=== PATIENT | female | born 1960 | race Caucasian/White ===

== ENCOUNTER → 2016-07-23 | Outpatient (CLI) | payer MEDICARE ==
[~2016-07-23] MED LIST: ALBU90AE IH; ALPR0.25 PO; ATOR40TA70 PO; BARIUM SUSPENSION 2.1% (VANILLA SILQ) 450 ML PO ONE; BUDE10.2 IH; BUPR100T15 PO; BUTA1CAP40 PO; CETI10TA17 PO; CLOP75TA28 PO; IBUP-1780 PO; IOHEXOL 350 MG/ML 100 ML (OMNIPAQUE 350) VIAL IV ONE; IPRA3AMP IH; LUBI8CAP PO; METO-333 PO; NS 100 ML (IVPB) BAG IV ONE; OXYC-202 PO; OXYC-465 PO; PANT40TA3 PO; PREG100C PO; RT-ALBUINH IH; TRAM-42 PO; VARE1TAB21 PO
--- OUTSIDE RECORDS SUMMARY | 2016-07-23 09:28 | XMS REPORT | Continuity of Care Document ---
Author Author [facility] Organization [facility] Address Unknown Phone Unavailable Allergies Medications Problems Procedures Results Encounters ACCT No. Visit Date/Time Discharge Status Pt. Type Provider Facility Loc./Unit Complaint [id number] 05/19/2013 09:13:00 05/19/2013 23 :59:59 CLS Outpatient
--- NOTE | 2016-07-23 13:27 | Diagnostic Imaging Report ---
PROCEDURE: CT chest with contrast only. TECHNIQUE: Multiple contiguous axial images were obtained through the chest after administration of intravenous contrast. INDICATION: Lung cancer. Chest pain. 100 mL of Omnipaque 350 is administered intravenously. There is a comparison study from 01/20/2013 reviewed. FINDINGS: There are background prominent emphysema changes. There is an irregular nodule with speculation seen measuring 2.5 x 1.7 x 2.5 cm in the right lung apex with associated pleural parenchymal thickening in the right apex. This is new from 2013 exam. There is no more recent exam for comparison in our institution. The heart size is normal. There is no pericardial or pleural effusion. There are calcified lymph nodes in the infracarinal region compatible with old granulomatous process. Also calcified nodes in the subaortic location and in the left lung base seen. No significantly enlarged noncalcified lymph nodes seen in the lala, the mediastinum or in the axilla. Sections of the upper abdomen demonstrate a left adrenal nodule measuring 1.6 x 1.2 cm of indeterminate etiology. There is some thickening in the left adrenal gland on 2013 exam and this is possibly a chronic benign adrenal nodule. The previous study, however, does not evaluate this region adequately and comparison is not accurate. PET scan evaluation can be helpful. The osseous structures demonstrate degenerative changes and mild right convexity scoliosis in the upper thoracic spine. IMPRESSION: 1. Right upper lobe irregular nodule measuring 2.5 cm. This could be a neoplasm. 2. Emphysema. 3. Indeterminate 1.6 cm left adrenal nodule. Dictated by: Dictated on workstation # [id number]
== END ==
LOC: RAD 09:25
PROVIDERS: ATTEND Internal Medicine Critical Care Medicine
DX: J84.9 Interstitial pulmonary disease, unspecified (principal); C34.90 Malignant neoplasm of unspecified part of unspecified bronchus or lung; F41.9 Anxiety disorder, unspecified; Z72.0 Tobacco use
CPT/HCPCS: 71260; 74170

== ENCOUNTER → 2016-07-23 | Outpatient (CLI) | payer MEDICARE ==
[~2016-07-23] MED LIST changes: -BARIUM SUSPENSION 2.1% (VANILLA SILQ) 450 ML PO ONE; -IOHEXOL 350 MG/ML 100 ML (OMNIPAQUE 350) VIAL IV ONE; -NS 100 ML (IVPB) BAG IV ONE
--- OUTSIDE RECORDS SUMMARY | 2016-07-23 09:34 | XMS REPORT | Continuity of Care Document ---
Author Author [facility] Organization [facility] Address Unknown Phone Unavailable Allergies Medications Problems Procedures Results Encounters ACCT No. Visit Date/Time Discharge Status Pt. Type Provider Facility Loc./Unit Complaint [id number] 05/19/2013 09:13:00 05/19/2013 23 :59:59 CLS Outpatient
--- NOTE | 2016-07-23 12:26 | Diagnostic Imaging Report ---
PROCEDURE: CT abdomen with and without contrast. TECHNIQUE: Multiple contiguous axial CT images of the abdomen were obtained prior to and after intravenous administration of iodinated contrast. INDICATION: History of lung cancer, asthma, and COPD. Anterior chest pain. COMPARISON: CT chest from same day and prior CT chest dated 07/23/2016 FINDINGS: Included views of the lung bases show areas of air trapping consistent with background of COPD. Calcified granulomas noted within the lateral left lung base. There is some fullness of the bilateral adrenal glands. A 1.2 x 1.1 cm more focal nodular area is seen on the left. Noncontrast Hounsfield units are consistent with benign adenoma. The kidneys, pancreas, and spleen have a normal appearance. There is a small cyst within the dome of segment 2 of the liver. Similar-appearing ovoid hypoenhancing focus is also noted within medial margins of segment 3 of the liver. This may represent a cyst as well, but is too small to adequately characterize based on this exam. No distinct solid hepatic mass type lesions are identified. Included small bowel loops are nondistended. There is no loculated fluid collection, free fluid or free air within the abdomen. No abnormal mesenteric or retroperitoneal adenopathy is seen. There is diffuse calcified aortic atherosclerosis. Bony structures show age-related degenerative changes. No lytic or blastic bony lesions are seen. IMPRESSION: 1. Fullness of the bilateral adrenal glands with more nodular area on the left. Again, noncontrast Hounsfield units are consistent with benign adenoma. 2. Benign-appearing cyst within the dome of segment 2 of the liver and similar appearing subcentimeter lesion within the medial inferior margins of segment 3 of the liver. This too may represent a cyst, but is too small to adequately characterized based on this exam. 3. Significant diffuse calcified aortic and arterial atherosclerosis. Correlation for risk factors is recommended. 4. Changes of COPD within the included lung bases. Dictated by: Dictated on workstation # [id number]
== END ==
LOC: RAD 09:31
PROVIDERS: ATTEND Internal Medicine Hematology & Oncology
DX: E27.9 Disorder of adrenal gland, unspecified (principal); K76.89 Other specified diseases of liver; I70.0 Atherosclerosis of aorta; J44.9 Chronic obstructive pulmonary disease, unspecified; C34.90 Malignant neoplasm of unspecified part of unspecified bronchus or lung
CPT/HCPCS: 74170

== ENCOUNTER → 2016-08-06 | Outpatient (CLI) | payer MEDICARE ==
--- NOTE | 2016-08-06 18:04 | Diagnostic Imaging Report ---
EXAMINATION: PET-CT TECHNIQUE: Serum glucose level at the time of the study is: 84 mg/dL. 12.6 mCi of FDG was administered intravenously followed by obtaining PET images with corresponding noncontrast CT scan images. The CT scan was performed for anatomic correlation and attenuation correction and was not performed according to the diagnostic protocol of the areas covered. The scan was performed from the head to mid thighs. INDICATION: Non-small cell lung cancer, recurrence detection. FINDINGS: There is symmetric FDG uptake in the brain. There are nonfocal areas of mild increased uptake in the neck seen. These are most likely physiologic. There is mild hypermetabolism seen in the right lung apex posteriorly. This is most prominent along the posterior medial aspect of the right lung apex posterior to the area of the dense consolidation in the central portion of the apex. The patient reportedly had chemotherapy and radiation more than 12 months prior to this scan. Radiation pneumonitis is a possibility although generally expected to be less hypermetabolic after a year. No other hypermetabolic lesion is identified. No significant hypermetabolic lesion is seen in the abdomen or pelvis. Expected excretion in the urinary tract is seen. IMPRESSION: Mild hypermetabolism seen most prominently along the posterior aspect of the right lung apex is concerning for tumor recurrence. Radiation pneumonitis is in the differential although less likely since radiation was done one year ago. If needed, a CT-guided biopsy could be performed, or followup exams. Dictated by: Dictated on workstation # [id number]
== END ==
LOC: RAD 10:17
PROVIDERS: ATTEND Internal Medicine Hematology & Oncology
DX: C34.11 Malignant neoplasm of upper lobe, right bronchus or lung (principal); J84.9 Interstitial pulmonary disease, unspecified; M54.9 Dorsalgia, unspecified

== ENCOUNTER → 2016-08-16 | Outpatient (CLI) | payer MEDICARE ==
[~2016-08-16] MED LIST changes: +GADOBUTROL 7.5 MMOL/7.5 ML (GADAVIST) VIAL IV ONE
--- NOTE | 2016-08-16 12:02 | Diagnostic Imaging Report ---
PROCEDURE: MR imaging of the brain with and without contrast. TECHNIQUE: Multiplanar, multisequence MR imaging of the brain was performed with and without contrast. INDICATION: Frequent headaches. Lung cancer. 5 ML of Gadavist is administered intravenously. FINDINGS: There is no diffusion restriction to suggest an acute infarct or other diffusion abnormality. The brain parenchyma demonstrate normal rivera and white matter differentiation. There is no enhancing mass to suggest metastatic disease. There is an 8mm aneurysm suspected along the left anterior cerebral artery. The internal auditory canals and inner ear structures appear unremarkable. The brainstem and cerebellum appear unremarkable. The pituitary gland is normal in size. No hypothalamic or pineal region mass. IMPRESSION: 1. No acute infarct or enhancing mass. No evidence of metastasis. 2. 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 Further evaluation with CTA or MRA of the brain is recommended. Report was faxed to office Of Dr. Cooper by sue at 12:02 p.m. Dictated by: Dictated on workstation # [id number]
== END ==
LOC: RAD 09:36
PROVIDERS: ATTEND Internal Medicine Hematology & Oncology
DX: R51 Headache (principal)
CPT/HCPCS: 70553

== ENCOUNTER 2016-08-22 09:38 | Day surgery (SDC) | payer MEDICARE ==
[~2016-08-22] VITALS: Ht 154.9 cm; Wt 49.4 kg
[2016-08-22] VITALS (15 sets, daily range): BP systolic 107–191; BP diastolic 67–92
[2016-08-22 10:06] LABS: MEAN PLATELET VOLUME 10.7 FL (7.4-10.4); RED BLOOD COUNT 5.11 10^6/uL (4.35-5.85); RED CELL DISTRIBUTION WIDTH 13.9 % (10.0-14.5); WHITE BLOOD COUNT 9.3 10^3/uL (4.3-11.0)
[2016-08-22 10:14] LABS: INR 0.9 (0.8-1.4); PROTHROMBIN TIME PATIENT 11.8 SEC (12.2-14.7)
[2016-08-22] MEDS ORDERED: fentaNYL INJECTION 100 MCG/2 ML AMP IVP ONE (10:15)
[2016-08-22] MEDS ORDERED: LIDOCAINE 1% INJ 20 ML (XYLOCAINE) VIAL INJ ONE (10:15)
[2016-08-22] MEDS ORDERED: IBUP-1780 PO (11:16)
[2016-08-22] MEDS ORDERED: PANT40TA3 PO (11:16)
[2016-08-22] MEDS ORDERED: CETI10TA17 PO (11:16)
[2016-08-22] MEDS ORDERED: ALBU90AE IH (11:16)
[2016-08-22] MEDS ORDERED: ATOR40TA70 PO (11:16)
[2016-08-22] MEDS ORDERED: RT-ALBUINH IH (11:16)
[2016-08-22] MEDS ORDERED: ALPR0.25 PO (11:16)
[2016-08-22] MEDS ORDERED: BUDE10.2 IH (11:16)
[2016-08-22] MEDS ORDERED: LUBI8CAP PO (11:16)
[2016-08-22] MEDS ORDERED: OXYC-202 PO (11:16)
[2016-08-22] MEDS ORDERED: CLOP75TA28 PO (11:16)
[2016-08-22] MEDS ORDERED: BUTA1CAP40 PO (11:16)
[2016-08-22] MEDS ORDERED: PREG100C PO (11:16)
[2016-08-22] MEDS ORDERED: IPRA3AMP IH (11:16)
[2016-08-22] MEDS ORDERED: METO-333 PO (11:16)
[2016-08-22] MEDS ORDERED: BUPR100T15 PO (11:16)
[2016-08-22] MEDS ORDERED: OXYC-465 PO (11:16)
[2016-08-22] MEDS ORDERED: VARE1TAB21 PO (11:30)
--- NOTE | 2016-08-22 12:24 | Pre-Procedure Progress Note ---
Pre-Procedure Progress Note H&P Reviewed The H&P was reviewed, patient examined and no changes noted. Date H&P Reviewed: Aug 22, 2016 Time H&P Reviewed: 11:30 Pre-Procedure Diagnosis: lung mass ALANIS JERONIMO MD Aug 22, 2016 12:24
[2016-08-22] MEDS ORDERED: HYDROcodone/APAP 5 MG/325 MG (LORTAB) TAB PO PRN (12:30)
--- NOTE | 2016-08-22 13:41 | Diagnostic Imaging Report ---
EXAMINATION: CT-guided biopsy-lung. INDICATION: Right lung apex mass. Current history and physical and other medical records are reviewed prior to the procedure. CONSENT: Informed consent was obtained from the patient. The risks, benefits, potential complications and alternatives were reviewed and all questions answered to the patient's satisfaction. The patient's vital signs, cardiac rhythm, and pulse oximetry were observed throughout the procedure by qualified nursing personnel. Sedation/medications: none. FINDINGS: Right lung apex the mass with hypermetabolism seen posteriorly on PET. PROCEDURE: After maximal sterile barrier technique preparation and draping, 1% lidocaine was utilized for local anesthesia. With the patient in right side down position, and via posterior intercostal approach, a 17-gauge guide needle is introduced into the right upper lobe apical mass directed into the hypermetabolic region seen on recent PET under CT scan guidance. After confirming adequate positioning with saved CT images, multiple 18 gauge core biopsy specimens were obtained. 3 cc of autologous blood patch is injected in the tract as the guide needle was removed The patient tolerated the procedure well with no immediate complications. IMPRESSION: Successful CT-guided biopsy of right lung apex mass. Dictated by: Dictated on workstation # [id number]
--- NOTE | 2016-08-22 20:19 | Diagnostic Imaging Report ---
EXAMINATION: Portable upright radiograph of the chest. INDICATION: Post lung biopsy. FINDINGS: There is a left lung apex mass with prominent associated opacity likely related to postbiopsy changes. There is no pneumothorax. There is diffuse interstitial thickening in the lungs. The heart size is normal. No pleural effusion. The mediastinum and lala appear unremarkable. IMPRESSION: Left lung apex mass. No pneumothorax. Dictated by: Dictated on workstation # [id number]
== END 2016-08-22 16:40 | disposition home or self-care (01) ==
LOC: RAD 09:38 → SURG 13:07 → RAD 16:40
PROVIDERS: ATTEND Internal Medicine Hematology & Oncology
DX: J84.10 Pulmonary fibrosis, unspecified (principal)
CPT/HCPCS: 36415; 71035; 77012; 85027; 85610; 85730; 88305; 88342; 88344

== ENCOUNTER → 2016-08-27 | Outpatient (CLI) | payer MEDICARE ==
[~2016-08-27] MED LIST changes: -GADOBUTROL 7.5 MMOL/7.5 ML (GADAVIST) VIAL IV ONE
--- NOTE | 2016-08-27 13:30 | Diagnostic Imaging Report ---
PROCEDURE: MR angiography of the brain without the use of contrast. TECHNIQUE: 3D [id number] non contrast enhanced MR angiography of the head was performed. Source data was reformatted into rotating MIP projections. INDICATION: Possible aneurysm based on prominent flow-void signal on the MRI of the brain performed on 08/16/2016. FINDINGS: There is an aneurysm measuring 9 x 7 x 6 mm arising from the anterior communicating artery and projecting inferiorly between the medial aspect of the frontal lobes posteriorly and inferiorly from the suprasellar cistern. The anterior cerebral arteries, middle cerebral arteries, and internal carotid arteries are patent with no significant stenosis or occlusion seen. There is codominance of the vertebral arteries, perhaps the left vertebral artery is minimally larger. There are patent bilateral posterior cerebral arteries and basilar artery. The visualized portions of the venous sinuses appear patent. 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 No significant central intracranial vessel occlusion or high-grade stenosis is seen. The report was faxed to the office of Dr. Liberty Cooper by JACOB at 1:30 PM. Dictated by: Dictated on workstation # [id number]
== END ==
LOC: RAD 10:03
PROVIDERS: ATTEND Internal Medicine Hematology & Oncology
DX: I67.1 Cerebral aneurysm, nonruptured (principal); R51 Headache
CPT/HCPCS: 70544

== ENCOUNTER 2016-09-01 17:53 | Emergency (ER) | payer MEDICARE ==
[~2016-09-01] VITALS: Ht 154.9 cm; Wt 49.4 kg
[~2016-09-01 17:53] MED LIST changes: -TRAM-42 PO
[2016-09-01] MEDS ORDERED: fentaNYL INJECTION 100 MCG/2 ML AMP IM ONE (18:30)
[2016-09-01] MEDS ORDERED: ONDANSETRON 4 MG (ZOFRAN) ORAL DISSOLVE TAB PO ONE (18:30)
--- NOTE | 2016-09-01 18:36 | ED Headache ---
General Chief Complaint: Head/Cervical Problems Stated Complaint: POST OP/R SIDE PAIN/HEADACHE Nursing Triage Note: to ER with complaints of headache and right axillary tenderness s/p lung biopsy approximately 1 week ago. Nursing Sepsis Screen: No Definite Risk Source: patient Exam Limitations: no limitations History of Present Illness Time seen by provider: 18:33 Initial Comments Patient has 2 acute problems today. Personal she has a bad headache. It is described as a global throbbing associated with nausea and photophobia. Pain has been constant for 5 days. She is taking Percocet without relief. She recently had an MRA which showed a 9 mm aneurysm of the t[place] of [place]. She also has right axillary pain where she had a CT-guided biopsy of the right upper lung mass last week. She denies fevers. She has a nonproductive cough. She is not short of air. Pain is worse with pressure on the side or moving the arm. Allergies and Home Medications Allergies Coded Allergies: No Known Drug Allergies (Unverified , 08/22/16) Home Medications Albuterol Sulfate 90 Mcg Aer.pow.ba, 2 PUFF IH Q4H, (Reported) Albuterol Sulfate 1 Puff Puff, 2 PUFF IH Q4H, (Reported) 1 PUFF = 90 MCG Alprazolam 0.25 Mg Tablet, 1 TAB PO HS, (Reported) Atorvastatin Calcium 40 Mg Tablet, 1 TAB PO DAILY, (Reported) Budesonide/Formoterol Fumarate 10.2 Gm Hfa.aer.ad, 2 PUFF IH BID, (Reported) Bupropion HCl 100 Mg Tablet, 1 TAB PO BID, (Reported) Butalbit/Acetamin/Caff/Codeine 1 Each Capsule, 1 CAP PO Q4H PRN for HEADACHE, ( Reported) Cetirizine HCl 10 Mg Tablet, 1 TAB PO DAILY, (Reported) Clopidogrel Bisulfate 75 Mg Tablet, 1 TAB PO DAILY, (Reported) Ibuprofen 800 Mg Tablet, 1 TAB PO Q8H PRN for PAIN, (Reported) Ipratropium/Albuterol Sulfate 3 Ml Ampul.neb, 3 ML IH Q4H PRN for SHORTNESS OF BREATH, (Reported) Lubiprostone 8 Mcg Capsule, 1 CAP PO BID, (Reported) Metoprolol Tartrate 25 Mg Tablet, 25 MG PO DAILY, (Reported) Oxycodone HCl/Acetaminophen 1 Each Tablet, 1-2 TAB PO Q6H PRN for PAIN, ( Reported) Pantoprazole Sodium 40 Mg Tablet.dr, 1 TAB PO DAILY, (Reported) Pregabalin 100 Mg Capsule, 1 CAP PO BID, (Reported) Varenicline Tartrate 1 Each Tab.ds.pk, 1 EACH PO DAILY, (Reported) Constitutional: no symptoms reported Eyes: Photophobia Ears, Nose, Mouth, Throat: no symptoms reported Respiratory: cough Cardiovascular: no symptoms reported Gastrointestinal: No abdominal pain Genitourinary: no symptoms reported Skin: no symptoms reported Psychiatric/Neurological: Headache All Other Systems Reviewed Negative Unless Noted: Yes Past Yjeqioh-Sjtnjy-Ramfcw Hx Patient Social History Alcohol Use: Denies Use Recreational Drug Use: Yes Drug of Choice: MARIJUANA 3-5 TIMES PER WEEK TO HELP W/ PAIN & APPETITE Smoking Status: Current Everyday Smoker Type Used: Cigarettes 2nd Hand Smoke Exposure: Yes Recent Foreign Travel: No Contact w/Someone Who Travel: No Recent Infectious Disease Expo: No Recent Hopitalizations: No Immunizations Up To Date Tetanus Booster (TDap): Unknown Seasonal Allergies Seasonal Allergies: Yes Surgeries HX Surgeries: Yes (lung biopsy) Surgeries: Cardiac, Hysterectomy Respiratory Hx Respiratory Disorders: Yes Respiratory Disorders: Asthma, COPD Cardiovascular Hx Cardiac Disorders: Yes (HX [place]) Cardiac Disorders: Aneurysm, Coronary Artery Disease, Heart Attack, High Cholesterol, Hypertension Neurological Hx Neurological Disorders: Yes Neurological Disorders: Headaches /Migraines Reproductive System Hx Reproductive Disorders: No 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 Genitourinary Hx Genitourinary Disorders: No Gastrointestinal Hx Gastrointestinal Disorders: Yes Gastrointestinal Disorders: Gastroesophageal Reflux Musculoskeletal Hx Musculoskeletal Disorders: Yes Musculoskeletal Disorders: Fibromyalgia, Chronic Back Pain Endocrine Hx Endocrine Disorders: No HEENT HX ENT Disorders: Yes (GLASSES) Loss of Vision: Bilateral Hearing Impairment: Denies Cancer Hx Cancer: 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) Cancer: Lung Psychosocial Hx Psychiatric Problems: Yes Behavioral Health Disorders: Anxiety, Depression Integumentary HX Skin/Integumentary Disorder: No Blood Transfusions Hx Blood Disorders: No Reviewed Nursing Assessment Reviewed/Agree w Nursing PMH: Yes Physical Exam Vital Signs Vital Sign - Last 12Hours 09/01/16 18:15 Temp 98.2 Pulse 95 Resp 18 B/P (MAP) 138/84 Pulse Ox 95 O2 Delivery Room Air Capillary Refill : Less Than 3 Seconds General Appearance: WD/WN, no apparent distress Neck: supple Cardiovascular: regular rate, rhythm Respiratory: lungs clear, normal breath sounds Gastrointestinal: non tender, soft Extremities: normal inspection, other (patient has tenderness in the posterior right axilla. There is no fluctuance or mass. No discoloration.) Psychiatric: alert, oriented x 3 Crainal Nerves: normal hearing, normal speech, PERRL Coordination/Gait: normal finger to nose, normal gait Motor/Sensory: no motor deficit, no sensory deficit Skin: normal color, warm/dry Progress/Results/Core Measures Results/Orders My Orders Orders - GALILEO MERCADO MD Chest Pa/Lat (2 View) (09/01/16 18:30) Ct Head Wo (09/01/16 18:30) Fentanyl Injection (Sublimaze Injection (09/01/16 18:30) Ondansetron Oral Dissolve Tab (Zofran (09/01/16 18:30) Medications Given in ED Current Medications Medications Dose Ordered Sig/Ivett Route Start Time Stop Time Status Last Admin Dose Admin Fentanyl Citrate 100 mcg ONCE ONCE IM 09/01/16 18:30 09/01/16 18:33 DC 09/01/16 18:37 100 MCG Ondansetron HCl 4 mg ONCE ONCE PO 09/01/16 18:30 09/01/16 18:33 DC 09/01/16 18:37 4 MG Vital Signs/I&O Vital Sign - Last 12Hours 09/01/16 09/01/16 18:15 18:37 Temp 98.2 98.2 Pulse 95 Resp 18 B/P (MAP) 138/84 Pulse Ox 95 O2 Delivery Room Air Blood Pressure Mean: 102 Progress Note : Time: 19:06 Progress Note Feels better After medication. Radiology results discussed patient. She has a appointment with neurosurgery this . Diagnostic Imaging Comments ate of Exam:09/01/16 CT HEAD WO PROCEDURE: CT head without contrast. TECHNIQUE: Multiple contiguous axial images were obtained through the brain without the use of intravenous contrast. DATE: September 01, 2016. COMPARISON: August 16, 2016 MRI brain. MR angiography of the head August 27, 2016. INDICATION: 56-year-old female, headache. History of lung cancer. FINDINGS: Noncontrast CT head exam is not sensitive for detection of brain metastasis. MRI brain with and without contrast would be the preferred imaging modality for assessment of brain metastasis. The ventricles and cerebral spinal fluid spaces are of normal size and configuration for the patient's age. There is no mass effect or midline shift. There is no acute intracranial hemorrhage. There is no abnormal extra-axial fluid collection. The visualized portions of the paranasal sinuses, mastoid air cells and middle ears are well aerated. IMPRESSION: 1. No identified acute intracranial abnormality. 2. Limited sensitivity for detection of brain metastasis. MRI brain with and without contrast would be the preferred imaging modality for such evaluation. 3. 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 Date of Exam:09/01/16 CHEST PA/LAT (2 VIEW) EXAMINATION: CHEST (PA AND LATERAL) CLINICAL INDICATION: 56-year-old female, cough, pain, shortness of breath. History of lung cancer. History of biopsy last week. COMPARISON: August 22, [address] chest July 23, 2016. FINDINGS: Stable overall appearance of the cardiomediastinal silhouette. There is no identified pneumothorax. There is no pleural effusion. There is asymmetric opacification within the right lung apex likely correlating with the patient's provided history of malignancy. This is fairly similar in overall appearance to comparison radiograph. There is no identified interval focal airspace consolidation. IMPRESSION: 1. Redemonstrated asymmetric opacification in the right lung apex likely correlating with provided history of lung cancer. 2. No identified pneumothorax or interval acute cardiopulmonary abnormality. Departure Impression Impression: Primary Impression: acute cephalgia Additional Impression: Pain in right axilla Disposition: 01 HOME, SELF-CARE Condition: Stable Departure-Patient Inst. Decision time for Depature: 19:01 Referrals: RICH SAUL DO (PCP) Primary Care Physician ALBERTINA ROJAS (Family) Primary Care Physician Patient Instructions: Headache, Adult (DC) Scripts Tramadol HCl (Ultram) 50 Mg Tablet 1-2 TAB PO Q4H Y for PAIN-MODERATE for 14 Days, TAB Prov: GALILEO MERCADO MD 09/01/16 GALILEO MERCADO MD Sep 01, 2016 18:36
--- NOTE | 2016-09-01 18:53 | Diagnostic Imaging Report ---
PROCEDURE: CT head without contrast. TECHNIQUE: Multiple contiguous axial images were obtained through the brain without the use of intravenous contrast. DATE: September 01, 2016. COMPARISON: August 16, 2016 MRI brain. MR angiography of the head August 27, 2016. INDICATION: 56-year-old female, headache. History of lung cancer. FINDINGS: Noncontrast CT head exam is not sensitive for detection of brain metastasis. MRI brain with and without contrast would be the preferred imaging modality for assessment of brain metastasis. The ventricles and cerebral spinal fluid spaces are of normal size and configuration for the patient's age. There is no mass effect or midline shift. There is no acute intracranial hemorrhage. There is no abnormal extra-axial fluid collection. The visualized portions of the paranasal sinuses, mastoid air cells and middle ears are well aerated. IMPRESSION: 1. No identified acute intracranial abnormality. 2. Limited sensitivity for detection of brain metastasis. MRI brain with and without contrast would be the preferred imaging modality for such evaluation. 3. 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 Dictated by: Dictated on workstation # [id number]
--- NOTE | 2016-09-01 18:56 | Diagnostic Imaging Report ---
EXAMINATION: CHEST (PA AND LATERAL) CLINICAL INDICATION: 56-year-old female, cough, pain, shortness of breath. History of lung cancer. History of biopsy last week. COMPARISON: August 22, [address] chest July 23, 2016. FINDINGS: Stable overall appearance of the cardiomediastinal silhouette. There is no identified pneumothorax. There is no pleural effusion. There is asymmetric opacification within the right lung apex likely correlating with the patient's provided history of malignancy. This is fairly similar in overall appearance to comparison radiograph. There is no identified interval focal airspace consolidation. IMPRESSION: 1. Redemonstrated asymmetric opacification in the right lung apex likely correlating with provided history of lung cancer. 2. No identified pneumothorax or interval acute cardiopulmonary abnormality. Dictated by: Dictated on workstation # [id number]
[2016-09-01] MEDS ORDERED: TRAM-42 PO (19:08)
[2016-09-01 19:13] VITALS: BP 133/80
== END 2016-09-01 19:13 | disposition home or self-care (01) ==
LOC: EDUNIT# 17:53 → ER 17:56
DX: R51 Headache (principal); G89.18 Other acute postprocedural pain; R91.8 Other nonspecific abnormal finding of lung field; I67.1 Cerebral aneurysm, nonruptured; I10 Essential (primary) hypertension; J44.9 Chronic obstructive pulmonary disease, unspecified; F17.210 Nicotine dependence, cigarettes, uncomplicated; Z79.02 Long term (current) use of antithrombotics/antiplatelets; Z79.899 Other long term (current) drug therapy; Z85.118 Personal history of other malignant neoplasm of bronchus and lung
CPT/HCPCS: 70450; 71020; 96372; 99282

== ENCOUNTER → 2016-10-16 | Outpatient (RCR) | payer MEDICARE, OTHER ==
--- OUTSIDE RECORDS SUMMARY | 2016-07-18 09:48 | XMS REPORT | Continuity of Care Document ---
Author Author [facility] Organization [facility] Address Unknown Phone Unavailable Allergies Medications Problems Procedures Results Encounters ACCT No. Visit Date/Time Discharge Status Pt. Type Provider Facility Loc./Unit Complaint [id number] 05/19/2013 09:13:00 05/19/2013 23 :59:59 CLS Outpatient
[2016-07-18 10:31] LABS: BASOPHILS % (AUTO) 0 % (0-10); EOSINOPHILS # (AUTO) 0.1 10^3/uL (0.0-0.3); EOSINOPHILS % (AUTO) 2 % (0-10); LYMPHOCYTES # (AUTO) 1.7 X 10^3 (1.0-4.0); LYMPHOCYTES % (AUTO) 21 % (12-44); MEAN CORPUSCULAR HEMOGLOBIN 32 PG (25-34); MEAN CORPUSCULAR HGB CONC 34 G/DL (32-36); MEAN CORPUSCULAR VOLUME 94 FL (80-99); MEAN PLATELET VOLUME 10.4 FL (7.4-10.4); MONOCYTES # (AUTO) 0.5 X 10^3 (0.0-1.0); MONOCYTES % (AUTO) 6 % (0-12); NEUTROPHILS # (AUTO) 5.4 X 10^3 (1.8-7.8); NEUTROPHILS % (AUTO) 71 % (42-75); PLATELET COUNT 334 10^3/uL (130-400); RED BLOOD COUNT 4.94 10^6/uL (4.35-5.85); RED CELL DISTRIBUTION WIDTH 14.2 % (10.0-14.5); WHITE BLOOD COUNT 7.7 10^3/uL (4.3-11.0)
[2016-07-18 11:17] LABS: ALANINE AMINOTRANSFERASE 9 U/L (0-55); ALBUMIN 4.2 G/DL (3.2-4.5); ANION GAP 9 MMOL/L (5-14); ASPARTATE AMINO TRANSFERASE 14 U/L (5-34); BILIRUBIN,TOTAL 0.3 MG/DL (0.1-1.0); BLOOD UREA NITROGEN 8 MG/DL (7-18); BUN/CREATININE RATIO 12; CALCIUM 9.7 MG/DL (8.5-10.1); CARBON DIOXIDE 26 MMOL/L (21-32); CHLORIDE 105 MMOL/L (98-107); CREATININE SERUM 0.68 MG/DL (0.60-1.30); GFR ESTIMATED > 60; GLUCOSE 87 MG/DL (70-105); POTASSIUM 3.9 MMOL/L (3.6-5.0); SODIUM 140 MMOL/L (135-145); TOTAL PROTEIN 7.5 G/DL (6.4-8.2)
[~2016-10-16] MED LIST changes: +TRAM-42 PO
[2016-10-16 10:35] LABS: BASOPHILS % (AUTO) 0 % (0-10); EOSINOPHILS # (AUTO) 0.2 10^3/uL (0.0-0.3); EOSINOPHILS % (AUTO) 2 % (0-10); LYMPHOCYTES # (AUTO) 1.7 X 10^3 (1.0-4.0); LYMPHOCYTES % (AUTO) 18 % (12-44); MEAN CORPUSCULAR HEMOGLOBIN 32 PG (25-34); MEAN CORPUSCULAR HGB CONC 33 G/DL (32-36); MEAN CORPUSCULAR VOLUME 95 FL (80-99); MEAN PLATELET VOLUME 10.9 FL (7.4-10.4); MONOCYTES # (AUTO) 0.5 X 10^3 (0.0-1.0); MONOCYTES % (AUTO) 6 % (0-12); NEUTROPHILS % (AUTO) 75 % (42-75); PLATELET COUNT 322 10^3/uL (130-400); RED BLOOD COUNT 4.85 10^6/uL (4.35-5.85); RED CELL DISTRIBUTION WIDTH 14.4 % (10.0-14.5); WHITE BLOOD COUNT 9.4 10^3/uL (4.3-11.0)
[2016-10-16 10:55] LABS: ALANINE AMINOTRANSFERASE 10 U/L (0-55); ALBUMIN 4.4 G/DL (3.2-4.5); ANION GAP 9 MMOL/L (5-14); ASPARTATE AMINO TRANSFERASE 15 U/L (5-34); BILIRUBIN,TOTAL 0.2 MG/DL (0.1-1.0); BLOOD UREA NITROGEN 8 MG/DL (7-18); BUN/CREATININE RATIO 11; CALCIUM 9.7 MG/DL (8.5-10.1); CARBON DIOXIDE 27 MMOL/L (21-32); CHLORIDE 104 MMOL/L (98-107); GFR ESTIMATED > 60; GLUCOSE 88 MG/DL (70-105); POTASSIUM 4.1 MMOL/L (3.6-5.0); SODIUM 140 MMOL/L (135-145); TOTAL PROTEIN 7.9 G/DL (6.4-8.2)
== END | disposition home or self-care (01) ==
LOC: ONC 07-05 14:26
PROVIDERS: ATTEND Internal Medicine Hematology & Oncology
DX: C34.11 Malignant neoplasm of upper lobe, right bronchus or lung (principal); J44.9 Chronic obstructive pulmonary disease, unspecified; F17.210 Nicotine dependence, cigarettes, uncomplicated; M79.7 Fibromyalgia; F41.9 Anxiety disorder, unspecified; Z79.899 Other long term (current) drug therapy
CPT/HCPCS: 36415; 80053; 85025; 99213; 99214

== ENCOUNTER 2016-10-21 11:36 | Emergency (ER) | payer MEDICARE, MEDICAID ==
[~2016-10-21] VITALS: Ht 152.4 cm; Wt 48.1 kg
--- NOTE | 2016-10-21 12:50 | ED General ---
General Chief Complaint: General Problems/Pain Stated Complaint: LEG GOING NUMB AFTER AFTER ANGIOGRAM 2 WEEKS AGO Nursing Triage Note: Pt reports she had angiogram of brain done 2 weeks ago. Pt now c/o pain and swelling to R groin site and pain in R lower leg. Pt also c/o SOA that started upon arrival to ED. Pt states she typically wears o2 at all times and did not have her oxygen on the way to ED. Pt also c/o headache that she has had for approx 2 months. Pt is scheduled to have doppler on R lower extremity tomorrow and has CT scheduled. Pt has hx lung cancer w/ possible mets to brain. Nursing Sepsis Screen: No Definite Risk Source of Information: Patient Exam Limitations: No Limitations History of Present Illness Time Seen by Provider: 12:01 Initial Comments This 56-year-old woman presents to the emergency room with complaints of pain in the right arm, right lateral chest, and right leg. She also complains of headache. 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 This procedure was performed about 2 weeks ago. Although her headache and chest wall discomfort have been present for a couple months, the pains in the arm and the leg have developed since the angiogram. She also complains of swelling around the angiogram site that is specifically tender to the touch. She is tearful because of the problems she is having. She also has severe COPD and is a poor candidate for procedural interventions as a result. [facility] She is not presently receiving therapies for cancer treatment. Allergies and Home Medications Allergies Coded Allergies: No Known Drug Allergies (Unverified , 08/22/16) Home Medications Albuterol Sulfate 90 Mcg Aer.pow.ba, 2 PUFF IH Q4H, (Reported) Albuterol Sulfate 1 Puff Puff, 2 PUFF IH Q4H, (Reported) 1 PUFF = 90 MCG Alprazolam 0.25 Mg Tablet, 1 TAB PO HS, (Reported) Atorvastatin Calcium 40 Mg Tablet, 1 TAB PO DAILY, (Reported) Budesonide/Formoterol Fumarate 10.2 Gm Hfa.aer.ad, 2 PUFF IH BID, (Reported) Bupropion HCl 100 Mg Tablet, 1 TAB PO BID, (Reported) Butalbit/Acetamin/Caff/Codeine 1 Each Capsule, 1 CAP PO Q4H PRN for HEADACHE, ( Reported) Cetirizine HCl 10 Mg Tablet, 1 TAB PO DAILY, (Reported) Clopidogrel Bisulfate 75 Mg Tablet, 1 TAB PO DAILY, (Reported) Ibuprofen 800 Mg Tablet, 1 TAB PO Q8H PRN for PAIN, (Reported) Ipratropium/Albuterol Sulfate 3 Ml Ampul.neb, 3 ML IH Q4H PRN for SHORTNESS OF BREATH, (Reported) Lubiprostone 8 Mcg Capsule, 1 CAP PO BID, (Reported) Metoprolol Tartrate 25 Mg Tablet, 25 MG PO DAILY, (Reported) Oxycodone HCl/Acetaminophen 1 Each Tablet, 1-2 TAB PO Q6H PRN for PAIN, ( Reported) Oxycodone HCl/Acetaminophen 1 Each Tablet, 1-2 EACH PO Q6H PRN for PAIN- MODERATE TO SEVERE, #20 Prescribed by: CORIN SIMMS on 10/21/16 1542 Pantoprazole Sodium 40 Mg Tablet.dr, 1 TAB PO DAILY, (Reported) Pregabalin 100 Mg Capsule, 1 CAP PO BID, (Reported) Tramadol HCl 50 Mg Tablet, 1-2 TAB PO Q4H PRN for PAIN-MODERATE for 14 Days Prescribed by: GALILEO MERCADO on 09/01/16 1908 Varenicline Tartrate 1 Each Tab.ds.pk, 1 EACH PO DAILY, (Reported) Constitutional: no symptoms reported EENTM: no symptoms reported Respiratory: see HPI Cardiovascular: see HPI Gastrointestinal: no symptoms reported Genitourinary: no symptoms reported Musculoskeletal: no symptoms reported Skin: no symptoms reported Psychiatric/Neurological: See HPI Hematologic/Lymphatic: No Symptoms Reported Immunological/Allergic: see HPI Past Xoyzgxf-Dkwegq-Lfutis Hx Patient Social History Alcohol Use: Denies Use Drug of Choice: MARIJUANA 3-5 TIMES PER WEEK TO HELP W/ PAIN & APPETITE Smoking Status: Current Everyday Smoker Type Used: Cigarettes 2nd Hand Smoke Exposure: Yes Recent Foreign Travel: No Contact w/Someone Who Travel: No Recent Infectious Disease Expo: No Recent Hopitalizations: No Immunizations Up To Date Tetanus Booster (TDap): Unknown Seasonal Allergies Seasonal Allergies: Yes Surgeries HX Surgeries: Yes (lung biopsy) Surgeries: Cardiac, Hysterectomy Respiratory Hx Respiratory Disorders: Yes Respiratory Disorders: Asthma, COPD Cardiovascular Hx Cardiac Disorders: Yes (HX ME) Cardiac Disorders: Aneurysm, Coronary Artery Disease, Heart Attack, High Cholesterol, Hypertension Neurological Hx Neurological Disorders: Yes Neurological Disorders: Headaches /Migraines Reproductive System Hx Reproductive Disorders: No 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 Genitourinary Hx Genitourinary Disorders: No Gastrointestinal Hx Gastrointestinal Disorders: Yes Gastrointestinal Disorders: Gastroesophageal Reflux Musculoskeletal Hx Musculoskeletal Disorders: Yes Musculoskeletal Disorders: Fibromyalgia, Chronic Back Pain Endocrine Hx Endocrine Disorders: No HEENT HX ENT Disorders: Yes (GLASSES) Loss of Vision: Bilateral Hearing Impairment: Denies Cancer Hx Cancer: 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) Cancer: Lung Psychosocial Hx Psychiatric Problems: Yes Behavioral Health Disorders: Anxiety, Depression Integumentary HX Skin/Integumentary Disorder: No Blood Transfusions Hx Blood Disorders: No Physical Exam Vital Signs Vital Sign - Last 12Hours 10/21/16 11:51 Temp 97.1 Pulse 97 Resp 18 B/P (MAP) 130/87 Pulse Ox 97 O2 Delivery Room Air Capillary Refill : Less Than 3 Seconds General Appearance: WD/WN, Mild Distress, Thin HEENT: PERRL/EOMI, Normal ENT Inspection Neck: Normal Inspection Respiratory: Lungs Clear, Normal Breath Sounds, No Accessory Muscle Use, No Respiratory Distress, Other (decreased air movement) Cardiovascular: Regular Rate, Rhythm, No Edema, No Murmur, Other (no palpable pulses in the right upper or lower extremity. 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 Norm as Tested Skin: Normal Color, Warm/Dry Progress/Results/Core Measures Results/Orders Lab Results Laboratory Tests Test 10/21/16 13:27 Range/Units Sodium Level 140 135-145 MMOL/L Potassium Level 3.8 3.6-5.0 MMOL/L Chloride Level 103 98-107 MMOL/L Carbon Dioxide Level 25 21-32 MMOL/L Anion Gap 12 5-14 MMOL/L Blood Urea Nitrogen 10 7-18 MG/DL Creatinine 0.65 0.60-1.30 MG/DL Estimat Glomerular Filtration Rate > 60 BUN/Creatinine Ratio 15 Glucose Level 91 70-105 MG/DL Calcium Level 9.4 8.5-10.1 MG/DL My Orders Orders - CORIN CHERY MD Us Right Up Ext Arterial [id number] (10/21/16 12:19) Us Right Low Ext [id number] (10/21/16 12:19) Basic Metabolic Panel (10/21/16 13:19) Saline Lock/Iv-Start (10/21/16 13:19) Fentanyl Injection (Sublimaze Injection (10/21/16 13:30) Us Venous Lower Ext Jodie (10/21/16 12:19) Ct Chest W (10/21/16 14:03) Ct Cervical Spine Wo (10/21/16 14:03) Iohexol Injection (Omnipaque 350 Mg/Ml 1 (10/21/16 14:15) Sodium Chloride Flush (Catheter Flush Sy (10/21/16 14:15) Ns (Ivpb) (Sodium Chloride 0.9% Ivpb Bag (10/21/16 14:15) Fentanyl Injection (Sublimaze Injection (10/21/16 14:30) Oxycodone/Apap 5/325mg Tablet (Percocet (10/21/16 15:45) Medications Given in ED Current Medications Medications Dose Ordered Sig/Ivett Route Start Time Stop Time Status Last Admin Dose Admin Fentanyl Citrate 50 mcg ONCE ONCE IVP 10/21/16 13:30 10/21/16 13:31 DC 10/21/16 13:34 50 MCG Fentanyl Citrate 50 mcg ONCE ONCE IVP 10/21/16 14:30 10/21/16 14:31 DC 10/21/16 14:39 50 MCG Iohexol 75 ml ONCE ONCE IV 10/21/16 14:15 10/21/16 14:16 DC 10/21/16 14:22 75 ML Oxycodone/ Acetaminophen 1 tab ONCE ONCE PO 10/21/16 15:45 10/21/16 15:46 DC 10/21/16 15:48 1 TAB Sodium Chloride 100 ml ONCE ONCE IV 10/21/16 14:15 10/21/16 14:16 DC 10/21/16 14:22 80 ML Vital Signs/I&O Vital Sign - Last 12Hours 10/21/16 10/21/16 11:51 15:48 Temp 97.1 98.1 Pulse 97 90 Resp 18 20 B/P (MAP) 130/87 Pulse Ox 97 94 O2 Delivery Room Air Room Air Blood Pressure Mean: 101 Progress Note #1: Time: 12:49 Progress Note I was unable to palpate pulses in either the right lower extremity or the right upper extremity. Ultrasound studies were ordered. Progress Note #2: Time: 13:35 Progress Note Ultrasound studies of the right extremities were negative for thrombosis or ischemic changes. Case was reviewed with Dr. Lujan. Apparently ultrasound of both lower extremities had been ordered to be performed tomorrow. I will add the left lower extremity ultrasound today. Both extremities were to be evaluated because of edema according to Dr. Lujan. I will also add the CT of the chest today. IV was established and BMP drawn. After creatinine is known, CT will be ordered. Fentanyl was ordered for pain management. Progress Note #3: Progress Note CT scans demonstrated no findings to explain her extremity pains. The compression fracture at T3 may be contributing to her upper back pain. Patient received IV fentanyl and oral Percocet while in the emergency room. She was advised to follow-up with her primary care provider and Dr. Lujan for further pain management. Her outpatient imaging studies scheduled for tomorrow were canceled. She was advised to discontinue smoking as it is a contributing factor to her peripheral vascular disease, lung disease, and cancer. Diagnostic Imaging Diagonstic Imaging: CT Plain Films/CT/US/NM/MRI: c-spine Comments CT of the thoracic spine viewed by me and report reviewed. See report below: NAME: ELIZ CALDERON MED REC#: [id number] PT STATUS: REG ER : 1960 PHYSICIAN: CORIN CHERY MD ADMIT DATE: 10/21/16/ER Draft Date of Exam:10/21/16 CT CERVICAL SPINE WO PROCEDURE: CT cervical spine without contrast. TECHNIQUE: Multiple contiguous axial images were obtained through the cervical spine without the use of intravenous contrast. Sagittal and coronal reformations were then performed. INDICATION: Neck pain radiating towards the right arm. History of lung cancer. FINDINGS: There is a compression fracture of the T3 vertebral body with an about 20% vertebral body height loss seen. The alignment of the cervical spine is satisfactory. The vertebral body heights are preserved. The disc heights are also preserved. The alignment of the facet joints and of the lateral masses of C1 and C2 are satisfactory. There is no destructive osseous mass to suggest metastatic disease. No significant posterior osteophytes are noted. No obvious spinal canal stenosis is seen at any level. The paraspinal soft tissues appear grossly unremarkable. There is consolidation seen in the right lung apex, presumably related to the known lung cancer and post therapeutic changes. Pleural thickening in the left apex is also seen. IMPRESSION: 1. No lytic or sclerotic metastasis is evident. 2. There is a 20% compression fracture of the T3 vertebral body of indeterminate age. An MRI of the thoracic spine would help assess for an acute component if this matches the level of pain. Dictated on workstation # [id number] Dict: 10/21/16 1434 Trans: 10/21/16 1448 [id number] Interpreted by: ALANIS JERONIMO MD Diagonstic Imaging: CT Plain Films/CT/US/NM/MRI: chest Comments CT chest viewed by me and report reviewed. See report below: NAME: ELIZ CALDERON MED REC#: [id number] PT STATUS: REG ER : 1960 PHYSICIAN: CORIN CHERY MD ADMIT DATE: 10/21/16/ER Draft Date of Exam:10/21/16 CT CHEST W PROCEDURE: CT chest with contrast only. TECHNIQUE: Multiple contiguous axial images were obtained through the chest after administration of intravenous contrast. INDICATION: Right-sided chest pain, history of lung cancer. Comparison: 07/23/2016. DISCUSSION: 1.5 cm nodular density within the left adrenal gland appears stable. The visualized upper abdomen is otherwise unremarkable. Normal heart size. No pleural or pericardial fluid. The thoracic aorta is normal in caliber and configuration. The pulmonary arteries are not dilated. No pulmonary embolus is identified. No mediastinal or axillary adenopathy. Moderate to severe emphysematous changes are again noted bilaterally. Calcified granulomas present within the left lung base, benign. Biapical scarring is again noted. Consolidation within the right apex is again noted, possibly chronic. Mass-like thickening within the right lung apex measures 2.5 x 1.7 cm, stable. No new pulmonary nodule identified. No acute osseous abnormality identified. There is no right-sided rib fracture specifically. Chronic mild compression fractures of the T3 and T5 vertebral bodies appear stable. IMPRESSION: 1. Stable changes of chronic lung disease. Additional nodular opacity within the right lung apex is also stable. Dictated on workstation # [id number] Dict: 10/21/16 1437 Trans: 10/21/16 1450 [facility] [id number] Interpreted by: EVELINA NAVA MD Diagonstic Imaging: Ultrasound Plain Films/CT/US/NM/MRI: other (right arm) Comments NAME: ELIZ CALDERON MED REC#: [id number] PT STATUS: REG ER : 1960 PHYSICIAN: CORIN CHERY MD ADMIT DATE: 10/21/16/ER Draft Date of Exam:10/21/16 US RIGHT UP EXT ARTERIAL [id number] EXAMINATION: Right upper extremity duplex arterial ultrasound. INDICATION: Right arm pain. FINDINGS: The right upper extremity arteries demonstrate color flow with triphasic waveforms in the subclavian to brachial arteries. There is transition into biphasic waveforms in the proximal radial artery and monophasic flow distally with diminished velocities in the radial artery of 20 and 14 cm/s. The ulnar artery demonstrates monophasic waveforms. IMPRESSION: Diminished flow velocity and abnormal waveforms in the radial artery, suggestive of underlying moderate distal disease. No focal high-grade stenosis is detected. Dictated on workstation # [id number] Dict: 10/21/16 1328 Trans: 10/21/16 1334 [id number] Interpreted by: ALANIS JERONIMO MD Diagonstic Imaging: Ultrasound Plain Films/CT/US/NM/MRI: leg Comments NAME: ELIZ CALDERON MED REC#: [id number] PT STATUS: REG ER : 1960 PHYSICIAN: CORIN CHERY MD ADMIT DATE: 10/21/16/ER Signed Date of Exam: 10/21/16 US VENOUS LOWER EXT JODIE INDICATION: Bilateral leg pain. EXAMINATION: Venous Doppler lower extremities. FINDINGS: Duplex ultrasound of the lower extremity venous systems was done with grayscale, spectral waveform, and color Doppler flow analysis. The veins are compressible and have normal spontaneous and augmented flow. IMPRESSION: Negative venous Doppler of lower extremities. Dictated by: Dictated on workstation # [id number] Dict: 10/21/16 1406 Trans: 10/21/16 1414 Interpreted by: JUSTINE VUONG Electronically signed by: JUSTINE VUONG 10/21/16 1414 Diagonstic Imaging: Ultrasound Plain Films/CT/US/NM/MRI: leg Comments NAME: ELIZ CALDERON [facility] REC#: [id number] PT STATUS: REG ER : 1960 PHYSICIAN: CORIN CHERY MD ADMIT DATE: 10/21/16/ER Draft Date of Exam:10/21/16 US RIGHT LOW EXT [id number] EXAMINATION: Right lower extremity arterial duplex ultrasound. INDICATION: Right leg pain and decreased pulses. FINDINGS: There is a mild atherosclerotic plaque seen in the femoropopliteal segments. Color Doppler demonstrates patency from the right common femoral artery through the femoropopliteal segments and patent posterior tibial and dorsalis pedis arteries. There are triphasic waveforms in the femoral segments with transition into biphasic waveform in the popliteal and infrapopliteal arteries. There is a diminished flow velocity of 33 cm per second in the dorsalis pedis and 38 cm per second in the posterior tibial artery. No high-grade focal stenosis is detected. IMPRESSION: There is suggestion of infrapopliteal disease with mildly diminished biphasic flow in the posterior tibial and dorsalis pedis arteries. No focal high-grade stenosis is detected on this exam. Dictated on workstation # [id number] Dict: 10/21/16 1325 Trans: 10/21/16 1335 [facility] [id number] Interpreted by: ALANIS JERONIMO MD Departure Impression Impression: Primary Impression: Bilateral leg pain Additional Impressions: Peripheral vascular disease Lung cancer Qualified Codes: C34.11 - Malignant neoplasm of upper lobe, right bronchus or lung Compression fracture of thoracic spine, non-traumatic Qualified Codes: M48.54XA - Collapsed vertebra, not elsewhere classified, thoracic region, initial encounter for fracture Right arm pain Headache Qualified Codes: R51 - Headache Disposition: 01 HOME, SELF-CARE Condition: Improved Departure-Patient Inst. Decision time for Depature: 15:30 Referrals: RICH SAUL DO (PCP) Primary Care Physician ALBERTINA ROJAS (Family) Primary Care Physician Patient Instructions: CHRONIC PAIN, Peripheral Vascular (Arterial) Disease (DC) , Vertebral Compression Fracture Add. Discharge Instructions: Keep your follow-up appointment with Dr. Lujan and review imaging studies with her. Follow-up with your primary care provider soon as possible. Discuss chronic pain management with Dr. Lujan and your primary care provider. Smoking cessation should help prevent the progression of lung disease and peripheral vascular disease. Your leg and arm pain may be in part due to peripheral vascular disease. Return to the emergency room if symptoms worsen. All discharge instructions reviewed with patient and/or family. Voiced understanding. Scripts Oxycodone HCl/Acetaminophen (Percocet 5-325 mg Tablet) 1 Each Tablet 1-2 EACH PO Q6H Y for PAIN-MODERATE TO SEVERE, #20 TAB Prov: CORIN CHERY MD 10/21/16 Copy Copies To 1: RICH SAUL DO Copies To 2: JO LUJAN MD, JOSHUA T MD Oct 21, 2016 12:50
[2016-10-21] MEDS ORDERED: fentaNYL INJECTION 100 MCG/2 ML AMP IVP ONE ×2 (13:30→14:30)
--- NOTE | 2016-10-21 13:35 | Diagnostic Imaging Report ---
EXAMINATION: Right lower extremity arterial duplex ultrasound. INDICATION: Right leg pain and decreased pulses. FINDINGS: There is a mild atherosclerotic plaque seen in the femoropopliteal segments. Color Doppler demonstrates patency from the right common femoral artery through the femoropopliteal segments and patent posterior tibial and dorsalis pedis arteries. There are triphasic waveforms in the femoral segments with transition into biphasic waveform in the popliteal and infrapopliteal arteries. There is a diminished flow velocity of 33 cm per second in the dorsalis pedis and 38 cm per second in the posterior tibial artery. No high-grade focal stenosis is detected. IMPRESSION: There is suggestion of infrapopliteal disease with mildly diminished biphasic flow in the posterior tibial and dorsalis pedis arteries. No focal high-grade stenosis is detected on this exam. Dictated by: Dictated on workstation # [id number]
--- NOTE | 2016-10-21 13:35 | Diagnostic Imaging Report ---
EXAMINATION: Right upper extremity duplex arterial ultrasound. INDICATION: Right arm pain. FINDINGS: The right upper extremity arteries demonstrate color flow with triphasic waveforms in the subclavian to brachial arteries. There is transition into biphasic waveforms in the proximal radial artery and monophasic flow distally with diminished velocities in the radial artery of 20 and 14 cm/s. The ulnar artery demonstrates monophasic waveforms. IMPRESSION: Diminished flow velocity and abnormal waveforms in the radial artery, suggestive of underlying moderate distal disease. No focal high-grade stenosis is detected. Dictated by: Dictated on workstation # [id number]
[2016-10-21 13:54] LABS: ANION GAP 12 MMOL/L (5-14); BLOOD UREA NITROGEN 10 MG/DL (7-18); BUN/CREATININE RATIO 15; CALCIUM 9.4 MG/DL (8.5-10.1); CARBON DIOXIDE 25 MMOL/L (21-32); CHLORIDE 103 MMOL/L (98-107); CREATININE SERUM 0.65 MG/DL (0.60-1.30); GFR ESTIMATED > 60; GLUCOSE 91 MG/DL (70-105); POTASSIUM 3.8 MMOL/L (3.6-5.0); SODIUM 140 MMOL/L (135-145)
--- NOTE | 2016-10-21 14:11 | Diagnostic Imaging Report ---
INDICATION: Bilateral leg pain. EXAMINATION: Venous Doppler lower extremities. FINDINGS: Duplex ultrasound of the lower extremity venous systems was done with grayscale, spectral waveform, and color Doppler flow analysis. The veins are compressible and have normal spontaneous and augmented flow. IMPRESSION: Negative venous Doppler of lower extremities. Dictated by: Dictated on workstation # [id number]
[2016-10-21] MEDS ORDERED: IOHEXOL 350 MG/ML 100 ML (OMNIPAQUE 350) VIAL IV ONE (14:15)
[2016-10-21] MEDS ORDERED: NS 100 ML (IVPB) BAG IV ONE (14:15)
[2016-10-21] MEDS ORDERED: CATHETER FLUSH 10 ML SYR IV PRN (14:15)
--- NOTE | 2016-10-21 14:49 | Diagnostic Imaging Report ---
PROCEDURE: CT cervical spine without contrast. TECHNIQUE: Multiple contiguous axial images were obtained through the cervical spine without the use of intravenous contrast. Sagittal and coronal reformations were then performed. INDICATION: Neck pain radiating towards the right arm. History of lung cancer. FINDINGS: There is a compression fracture of the T3 vertebral body with an about 20% vertebral body height loss seen. The alignment of the cervical spine is satisfactory. The vertebral body heights are preserved. The disc heights are also preserved. The alignment of the facet joints and of the lateral masses of C1 and C2 are satisfactory. There is no destructive osseous mass to suggest metastatic disease. No significant posterior osteophytes are noted. No obvious spinal canal stenosis is seen at any level. The paraspinal soft tissues appear grossly unremarkable. There is consolidation seen in the right lung apex, presumably related to the known lung cancer and post therapeutic changes. Pleural thickening in the left apex is also seen. IMPRESSION: 1. No lytic or sclerotic metastasis is evident. 2. There is a 20% compression fracture of the T3 vertebral body of indeterminate age. An MRI of the thoracic spine would help assess for an acute component if this matches the level of pain. Dictated by: Dictated on workstation # [id number]
--- NOTE | 2016-10-21 14:50 | Diagnostic Imaging Report ---
PROCEDURE: CT chest with contrast only. TECHNIQUE: Multiple contiguous axial images were obtained through the chest after administration of intravenous contrast. INDICATION: Right-sided chest pain, history of lung cancer. Comparison: 07/23/2016. DISCUSSION: 1.5 cm nodular density within the left adrenal gland appears stable. The visualized upper abdomen is otherwise unremarkable. Normal heart size. No pleural or pericardial fluid. The thoracic aorta is normal in caliber and configuration. The pulmonary arteries are not dilated. No pulmonary embolus is identified. No mediastinal or axillary adenopathy. Moderate to severe emphysematous changes are again noted bilaterally. Calcified granulomas present within the left lung base, benign. Biapical scarring is again noted. Consolidation within the right apex is again noted, possibly chronic. Mass-like thickening within the right lung apex measures 2.5 x 1.7 cm, stable. No new pulmonary nodule identified. No acute osseous abnormality identified. There is no right-sided rib fracture specifically. Chronic mild compression fractures of the T3 and T5 vertebral bodies appear stable. IMPRESSION: 1. Stable changes of chronic lung disease. Additional nodular opacity within the right lung apex is also stable. Dictated by: Dictated on workstation # [id number]
[2016-10-21] MEDS ORDERED: OXYC-197 PO (15:42)
[2016-10-21] MEDS ORDERED: oxyCODONE/APAP 5/325MG (PERCOCET 5) TABLET PO ONE (15:45)
[2016-10-21 15:48] VITALS: BP 124/85
== END 2016-10-21 15:48 | disposition home or self-care (01) ==
LOC: EDUNIT# 11:36 → ER 11:40
DX: M79.601 Pain in right arm (principal); C34.11 Malignant neoplasm of upper lobe, right bronchus or lung; M79.604 Pain in right leg; M48.54XA Collapsed vertebra, not elsewhere classified, thoracic region, initial encounter for fracture; R51 Headache; I73.9 Peripheral vascular disease, unspecified; M79.605 Pain in left leg; J44.9 Chronic obstructive pulmonary disease, unspecified; J45.909 Unspecified asthma, uncomplicated; I25.10 Atherosclerotic heart disease of native coronary artery without angina pectoris; I10 Essential (primary) hypertension; E78.00 Pure hypercholesterolemia, unspecified
CPT/HCPCS: 36415; 71260; 72125; 80048; 93926; 93931; 93970

== ENCOUNTER 2016-11-14 12:42 | Outpatient (RCR) | payer MEDICARE, MEDICAID ==
[~2016-11-14 12:42] MED LIST changes: +OXYC-197 PO
[2016-12-04] MEDS ORDERED: OXYC-465 PO (16:49)
== END 2016-12-09 15:28 | disposition home or self-care (01) ==
LOC: ONC 12:42
PROVIDERS: ATTEND Internal Medicine Hematology & Oncology
DX: C34.11 Malignant neoplasm of upper lobe, right bronchus or lung (principal); J44.9 Chronic obstructive pulmonary disease, unspecified; F17.210 Nicotine dependence, cigarettes, uncomplicated; M79.7 Fibromyalgia; F41.9 Anxiety disorder, unspecified; Z79.899 Other long term (current) drug therapy
CPT/HCPCS: 99213

== ENCOUNTER 2016-12-04 12:44 | Emergency (ER) | payer MEDICARE, MEDICAID ==
[~2016-12-04] VITALS: Ht 152.4 cm; Wt 48.1 kg
[2016-12-04 13:56] LABS: BILIRUBIN,URINE NEGATIVE (NEGATIVE); KETONES,URINE NEGATIVE (NEGATIVE); LEUKOCYTE ESTERASE ,URINE NEGATIVE (NEGATIVE); NITRITE,URINE NEGATIVE (NEGATIVE); PH,URINE 6.5 (5-9); PROTEIN,URINE NEGATIVE (NEGATIVE); UROBILINOGEN,URINE NORMAL (NORMAL)
[2016-12-04 14:03] LABS: BASOPHILS % (AUTO) 0 % (0-10); EOSINOPHILS # (AUTO) 0.2 10^3/uL (0.0-0.3); EOSINOPHILS % (AUTO) 3 % (0-10); LYMPHOCYTES # (AUTO) 2.2 X 10^3 (1.0-4.0); LYMPHOCYTES % (AUTO) 26 % (12-44); MEAN CORPUSCULAR HEMOGLOBIN 31 PG (25-34); MEAN CORPUSCULAR HGB CONC 33 G/DL (32-36); MEAN CORPUSCULAR VOLUME 96 FL (80-99); MEAN PLATELET VOLUME 10.8 FL (7.4-10.4); MONOCYTES # (AUTO) 0.6 X 10^3 (0.0-1.0); MONOCYTES % (AUTO) 7 % (0-12); NEUTROPHILS # (AUTO) 5.5 X 10^3 (1.8-7.8); NEUTROPHILS % (AUTO) 65 % (42-75); PLATELET COUNT 284 10^3/uL (130-400); RED BLOOD COUNT 4.85 10^6/uL (4.35-5.85); RED CELL DISTRIBUTION WIDTH 14.4 % (10.0-14.5); WHITE BLOOD COUNT 8.5 10^3/uL (4.3-11.0)
[2016-12-04 14:05] LABS: WBC,URINE 0-2 /HPF
[2016-12-04] MEDS ORDERED: fentaNYL INJECTION 100 MCG/2 ML AMP IVP STA ×2 (14:20→15:41)
[2016-12-04] MEDS ORDERED: NS IV 1000 ML 1,000 ML IV ONE (14:20)
--- NOTE | 2016-12-04 14:20 | ED General ---
General Chief Complaint: Head/Cervical Problems Stated Complaint: AVM/OFF BALANCE/LOST VOICE Source of Information: Patient, Family Exam Limitations: No Limitations History of Present Illness Time Seen by Provider: 13:05 Initial Comments Here with family who reports that she has had a few days of increasing weakness and feeling well. Reports loss of balance, difficulty with thinking and confusion, difficulty with speech and overall not eating well. 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 She also has history of lung cancer. States that she has been drinking a little bit. Overall just not feeling well. Complains of significant photophobia and aversion to sound. Timing/Duration: 2-3 Days, Getting Worse Severity: Moderate Associated Systoms: No Chest Pain, No Cough, No Fever/Chills, Headaches, Loss of Appetite, Malaise, No Nausea/Vomiting, Weakness Allergies and Home Medications Allergies Coded Allergies: No Known Drug Allergies (Unverified , 08/22/16) Home Medications Albuterol Sulfate 90 Mcg Aer.pow.ba, 2 PUFF IH Q4H, (Reported) Albuterol Sulfate 1 Puff Puff, 2 PUFF IH Q4H, (Reported) 1 PUFF = 90 MCG Alprazolam 0.25 Mg Tablet, 1 TAB PO HS, (Reported) Atorvastatin Calcium 40 Mg Tablet, 1 TAB PO DAILY, (Reported) Budesonide/Formoterol Fumarate 10.2 Gm Hfa.aer.ad, 2 PUFF IH BID, (Reported) Bupropion HCl 100 Mg Tablet, 1 TAB PO BID, (Reported) Butalbit/Acetamin/Caff/Codeine 1 Each Capsule, 1 CAP PO Q4H PRN for HEADACHE, ( Reported) Cetirizine HCl 10 Mg Tablet, 1 TAB PO DAILY, (Reported) Clopidogrel Bisulfate 75 Mg Tablet, 1 TAB PO DAILY, (Reported) Ibuprofen 800 Mg Tablet, 1 TAB PO Q8H PRN for PAIN, (Reported) Ipratropium/Albuterol Sulfate 3 Ml Ampul.neb, 3 ML IH Q4H PRN for SHORTNESS OF BREATH, (Reported) Lubiprostone 8 Mcg Capsule, 1 CAP PO BID, (Reported) Metoprolol Tartrate 25 Mg Tablet, 25 MG PO DAILY, (Reported) Oxycodone HCl/Acetaminophen 1 Each Tablet, 1-2 TAB PO Q6H PRN for PAIN, ( Reported) Oxycodone HCl/Acetaminophen 1 Each Tablet, 1-2 EACH PO Q6H PRN for PAIN- MODERATE TO SEVERE, #20 Prescribed by: CORIN SIMMS on 10/21/16 1542 Oxycodone HCl/Acetaminophen 1 Each Tablet, 1 EACH PO Q4H PRN for PAIN-MODERATE, #12 Prescribed by: JUSTINE PARKS on 12/04/16 1649 Pantoprazole Sodium 40 Mg Tablet.dr, 1 TAB PO DAILY, (Reported) Pregabalin 100 Mg Capsule, 1 CAP PO BID, (Reported) Tramadol HCl 50 Mg Tablet, 1-2 TAB PO Q4H PRN for PAIN-MODERATE for 14 Days Prescribed by: GALILEO MERCADO on 09/01/16 1908 Varenicline Tartrate 1 Each Tab.ds.pk, 1 EACH PO DAILY, (Reported) Constitutional: see HPI, No chills, dizziness, No fever, malaise, weakness EENTM: eye pain, hoarseness, no symptoms reported Respiratory: No cough, No short of breath Cardiovascular: No chest pain, No palpitations Gastrointestinal: No abdominal pain, No nausea, No vomiting Genitourinary: decreased output Musculoskeletal: muscle pain, muscle weakness Skin: no symptoms reported Psychiatric/Neurological: See HPI, Anxiety, Headache, Weakness All Other Systems Reviewed Negative Unless Noted: Yes Past Auhbcme-Fsnine-Wnwhfd Hx Patient Social History Alcohol Use: Denies Use Recreational Drug Use: No Drug of Choice: MARIJUANA 3-5 TIMES PER WEEK TO HELP W/ PAIN & APPETITE Smoking Status: Former Smoker Type Used: Cigarettes 2nd Hand Smoke Exposure: Yes Recent Foreign Travel: No Contact w/Someone Who Travel: No Recent Hopitalizations: No Immunizations Up To Date Tetanus Booster (TDap): Unknown Seasonal Allergies Seasonal Allergies: Yes Surgeries HX Surgeries: Yes (lung biopsy) Surgeries: Cardiac, Hysterectomy Respiratory Hx Respiratory Disorders: Yes Respiratory Disorders: Asthma, COPD Cardiovascular Hx Cardiac Disorders: Yes (HX TX) Cardiac Disorders: Aneurysm, Coronary Artery Disease, Heart Attack, High Cholesterol, Hypertension Neurological Hx Neurological Disorders: Yes Neurological Disorders: Headaches /Migraines Reproductive System Hx Reproductive Disorders: No 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 Genitourinary Hx Genitourinary Disorders: No Gastrointestinal Hx Gastrointestinal Disorders: Yes Gastrointestinal Disorders: Gastroesophageal Reflux Musculoskeletal Hx Musculoskeletal Disorders: Yes Musculoskeletal Disorders: Fibromyalgia, Chronic Back Pain Endocrine Hx Endocrine Disorders: No HEENT HX ENT Disorders: Yes (GLASSES) Loss of Vision: Bilateral Hearing Impairment: Denies Cancer Hx Cancer: 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) Cancer: Lung Psychosocial Hx Psychiatric Problems: Yes Behavioral Health Disorders: Anxiety, Depression Integumentary HX Skin/Integumentary Disorder: No Blood Transfusions Hx Blood Disorders: No Reviewed Nursing Assessment Reviewed/Agree w Nursing PMH: Yes Family Medical History Significant Family History: No Pertinent Family Hx Physical Exam Vital Signs Vital Sign - Last 12Hours 12/04/16 12:50 Temp 97.5 Pulse 74 Resp 16 B/P (MAP) 148/93 Pulse Ox 95 O2 Delivery Room Air Capillary Refill : General Appearance: No Apparent Distress, WD/WN HEENT: PERRL/EOMI, Pharynx Normal Neck: Non Tender, Supple Respiratory: Lungs Clear, Normal Breath Sounds Cardiovascular: Regular Rate, Rhythm, No Murmur Gastrointestinal: Non Tender, Soft Back: Normal Inspection, No CVA Tenderness, No Vertebral Tenderness Extremity: Non Tender, No Calf Tenderness Neurologic/Psychiatric: Alert, Oriented x3 Skin: Normal Color, Warm/Dry Progress/Results/Core Measures Results/Orders Lab Results Laboratory Tests Test 12/04/16 13:39 12/04/16 13:54 Range/Units Urine Color YELLOW Urine Clarity CLEAR Urine pH 6.5 5-9 Urine Specific Cleves 1.010 L 1.016-1.022 Urine Protein NEGATIVE NEGATIVE Urine Glucose (UA) NEGATIVE NEGATIVE Urine Ketones NEGATIVE NEGATIVE Urine Nitrite NEGATIVE NEGATIVE Urine Bilirubin NEGATIVE NEGATIVE Urine Urobilinogen NORMAL NORMAL MG/DL Urine Leukocyte Esterase NEGATIVE NEGATIVE Urine RBC (Auto) NEGATIVE NEGATIVE Urine RBC NONE /HPF Urine WBC 0-2 /HPF Urine Squamous Epithelial Cells 5-10 /HPF Urine Crystals NONE /LPF Urine Bacteria TRACE /HPF Urine Casts NONE /LPF Urine Mucus SMALL H /LPF Urine Culture Indicated NO White Blood Count 8.5 4.3-11.0 10^3/uL Red Blood Count 4.85 4.35-5.85 10^6/uL Hemoglobin 15.2 11.5-16.0 G/DL Hematocrit 47 35-52 % Mean Corpuscular Volume 96 80-99 FL Mean Corpuscular Hemoglobin 31 25-34 PG Mean Corpuscular Hemoglobin Concent 33 32-36 G/DL Red Cell Distribution Width 14.4 10.0-14.5 % Platelet Count 284 130-400 10^3/uL Mean Platelet Volume 10.8 H 7.4-10.4 FL Neutrophils (%) (Auto) 65 42-75 % Lymphocytes (%) (Auto) 26 12-44 % Monocytes (%) (Auto) 7 0-12 % Eosinophils (%) (Auto) 3 0-10 % Basophils (%) (Auto) 0 0-10 % Neutrophils # (Auto) 5.5 1.8-7.8 X 10^3 Lymphocytes # (Auto) 2.2 1.0-4.0 X 10^3 Monocytes # (Auto) 0.6 0.0-1.0 X 10^3 Eosinophils # (Auto) 0.2 0.0-0.3 10^3/uL Basophils # (Auto) 0.0 0.0-0.1 10^3/uL Sodium Level 142 135-145 MMOL/L Potassium Level 3.7 3.6-5.0 MMOL/L Chloride Level 105 98-107 MMOL/L Carbon Dioxide Level 30 21-32 MMOL/L Anion Gap 7 5-14 MMOL/L Blood Urea Nitrogen 9 7-18 MG/DL Creatinine 0.66 0.60-1.30 MG/DL Estimat Glomerular Filtration Rate > 60 BUN/Creatinine Ratio 14 Glucose Level 80 70-105 MG/DL Calcium Level 9.6 8.5-10.1 MG/DL Total Bilirubin 0.2 0.1-1.0 MG/DL Aspartate Amino Transf (AST/SGOT) 13 5-34 U/L Alanine Aminotransferase (ALT/SGPT) 11 0-55 U/L Alkaline Phosphatase 97 40-136 U/L Total Protein 7.2 6.4-8.2 GM/DL Albumin 4.1 3.2-4.5 GM/DL My Orders Orders - JUSTINE PARKS MD Chest Pa/Lat (2 View) (12/04/16 14:14) Fentanyl Injection (Sublimaze Injection (12/04/16 14:20) Saline Lock/Iv-Start (12/04/16 14:20) Ns Iv 1000 Ml (Sodium Chloride 0.9%) (12/04/16 14:20) Ct Angio Head W (12/04/16 15:38) Iohexol Injection (Omnipaque 350 Mg/Ml 1 (12/04/16 15:45) Ns (Ivpb) (Sodium Chloride 0.9% Ivpb Bag (12/04/16 15:45) Fentanyl Injection (Sublimaze Injection (12/04/16 15:41) Ketorolac Injection (Toradol Injection) (12/04/16 15:41) Oxycodone/Apap 5/325mg Tablet (Percocet (12/04/16 16:38) Medications Given in ED Current Medications Medications Dose Ordered Sig/Ivett Route Start Time Stop Time Status Last Admin Dose Admin Iohexol 100 ml ONCE ONCE IV 12/04/16 15:45 12/04/16 15:47 DC 12/04/16 15:59 80 ML Sodium Chloride 100 ml ONCE ONCE IV 12/04/16 15:45 12/04/16 15:47 DC 12/04/16 15:59 80 ML Sodium Chloride 1,000 ml @ 0 mls/hr Q0M ONCE IV 12/04/16 14:20 12/04/16 14:21 DC 12/04/16 14:35 1,000 MLS/HR Vital Signs/I&O Vital Sign - Last 12Hours 12/04/16 12/04/16 12/04/16 12/04/16 12:50 14:36 15:50 16:21 Temp 97.5 97.5 97.5 97.5 Pulse 74 Resp 16 B/P (MAP) 148/93 Pulse Ox 95 O2 Delivery Room Air Progress Note : Progress Note Seen and evaluated. IV, labs, UA, CT head ordered. Two-view chest x-ray ordered. Normal saline 1 L bolus. Fentanyl 50 g IV ordered. Repeat fentanyl 50 g IV with 50 mg of Toradol IV ordered for persistent pain. CT angiogram of the head ordered. 1640: No acute findings although aneurysm still noted. Patient has appointment at [place] tomorrow for evaluation of the AV malformation. Also noted to have cancer of the right upper lung likely and this is being followed by Dr. Quintero. At this point, stable for discharge for follow-up tomorrow and [facility] for the AV malformation in the brain. We will send a copy of the chart to Dr. Quintero. Percocet 2 tabs by mouth given. Discharged home with return precautions. Patient verbalize understanding instructions and agreement with plan. Diagnostic Imaging Diagonstic Imaging: CT Plain Films/CT/US/NM/MRI: head Comments NAME: ELIZ CALDERON MED REC#: [id number] PT STATUS: REG ER : 1960 PHYSICIAN: GLORIA JUSTIN APRN ADMIT DATE: 12/04/16/ER Signed Date of Exam: 12/04/16 CT HEAD WO PROCEDURE: CT head without contrast. TECHNIQUE: Multiple contiguous axial images were obtained through the brain without the use of intravenous contrast. INDICATION: Headache. Vision problems. FINDINGS: There is no intracranial hemorrhage, edema or mass effect. The brain parenchyma and rivera-white matter differentiation is preserved. No hydrocephalus. No extra-axial fluid collection is seen. The calvarium, the visualized portions of the paranasal sinuses and orbits appear grossly unremarkable. IMPRESSION: Unremarkable exam. Dictated by: Dictated on workstation # [id number] Dict: 12/04/16 1423 Trans: 12/04/16 1432 Interpreted by: ALANIS JERONIMO MD Electronically signed by: ALANIS JERONIMO MD 12/04/16 1432 Diagonstic Imaging: Xray Plain Films/CT/US/NM/MRI: chest Comments NAME: ELIZ CALDERON [facility] REC#: [id number] PT STATUS: REG ER : 1960 PHYSICIAN: JUSTINE PARKS MD ADMIT DATE: 12/04/16/ER Signed Date of Exam: 12/04/16 CHEST PA/LAT (2 VIEW) EXAMINATION: PA and lateral views of the chest. COMPARISON: 10/21/2016 CT chest and prior radiographs. FINDINGS: There is an opacity in the right lung apex with areas of scarring seen. It appears slightly more dense at this time. This could be related to an associated small infiltrate or atelectasis. There is background pulmonary hyperinflation and interstitial thickening. The heart size is normal. No effusion or pneumothorax. The mediastinum and lala appear unremarkable. IMPRESSION: Opacity in the right lung apex with adjacent scarring is again seen. There is slightly more density noted in this region at this time. This could be from a superimposed small infiltrate or atelectasis. Alternatively, if there is an underlying mass, progression is possible. Correlate with the prior biopsy results. Dictated by: Dictated on workstation # [id number] Dict: 12/04/16 1432 Trans: 12/04/16 1500 Interpreted by: ALANIS JERONIMO MD Electronically signed by: ALANIS JERONIMO MD 12/04/16 1500 Departure Impression Impression: Primary Impression: Headache Qualified Codes: R51 - Headache Disposition: 01 HOME, SELF-CARE Condition: Stable Departure-Patient Inst. Decision time for Depature: 16:47 Referrals: RICH SAUL DO (PCP) Primary Care Physician ALBERTINA ROJAS (Family) Primary Care Physician Patient Instructions: Headache, Adult (DC) Add. Discharge Instructions: All discharge instructions reviewed with patient and/or family. Voiced understanding. Follow-up in [place] with the doctors tomorrow as scheduled. Take medications as directed. Return for worsening pain, fever, vomiting, weakness, breathing problems or other concerns as needed. Scripts Oxycodone HCl/Acetaminophen (Oxycodone-Acetaminophen 10-325) 1 Each Tablet 1 EACH PO Q4H Y for PAIN-MODERATE, #12 TAB Prov: JUSTINE PARKS MD 12/04/16 Copy Copies To 1: TRICIA QUINTERO MD, TIMOTHY D MD Dec 04, 2016 14:20
[2016-12-04 14:25] LABS: ALANINE AMINOTRANSFERASE 11 U/L (0-55); ALBUMIN 4.1 GM/DL (3.2-4.5); ANION GAP 7 MMOL/L (5-14); ASPARTATE AMINO TRANSFERASE 13 U/L (5-34); BILIRUBIN,TOTAL 0.2 MG/DL (0.1-1.0); BLOOD UREA NITROGEN 9 MG/DL (7-18); BUN/CREATININE RATIO 14; CALCIUM 9.6 MG/DL (8.5-10.1); CARBON DIOXIDE 30 MMOL/L (21-32); CHLORIDE 105 MMOL/L (98-107); CREATININE SERUM 0.66 MG/DL (0.60-1.30); GFR ESTIMATED > 60; GLUCOSE 80 MG/DL (70-105); POTASSIUM 3.7 MMOL/L (3.6-5.0); SODIUM 142 MMOL/L (135-145); TOTAL PROTEIN 7.2 GM/DL (6.4-8.2)
--- NOTE | 2016-12-04 14:28 | Diagnostic Imaging Report ---
PROCEDURE: CT head without contrast. TECHNIQUE: Multiple contiguous axial images were obtained through the brain without the use of intravenous contrast. INDICATION: Headache. Vision problems. FINDINGS: There is no intracranial hemorrhage, edema or mass effect. The brain parenchyma and rivera-white matter differentiation is preserved. No hydrocephalus. No extra-axial fluid collection is seen. The calvarium, the visualized portions of the paranasal sinuses and orbits appear grossly unremarkable. IMPRESSION: Unremarkable exam. Dictated by: Dictated on workstation # [id number]
--- NOTE | 2016-12-04 14:59 | Diagnostic Imaging Report ---
EXAMINATION: PA and lateral views of the chest. COMPARISON: 10/21/2016 CT chest and prior radiographs. FINDINGS: There is an opacity in the right lung apex with areas of scarring seen. It appears slightly more dense at this time. This could be related to an associated small infiltrate or atelectasis. There is background pulmonary hyperinflation and interstitial thickening. The heart size is normal. No effusion or pneumothorax. The mediastinum and lala appear unremarkable. IMPRESSION: Opacity in the right lung apex with adjacent scarring is again seen. There is slightly more density noted in this region at this time. This could be from a superimposed small infiltrate or atelectasis. Alternatively, if there is an underlying mass, progression is possible. Correlate with the prior biopsy results. Dictated by: Dictated on workstation # [id number]
[2016-12-04] MEDS ORDERED: KETOROLAC 30 MG/ML VIAL IVP STA (15:41)
[2016-12-04] MEDS ORDERED: IOHEXOL 350 MG/ML 100 ML (OMNIPAQUE 350) VIAL IV ONE (15:45)
[2016-12-04] MEDS ORDERED: NS 100 ML (IVPB) BAG IV ONE (15:45)
[2016-12-04] MEDS ORDERED: oxyCODONE/APAP 5/325MG (PERCOCET 5) TABLET PO STA (16:38)
--- NOTE | 2016-12-04 16:40 | Diagnostic Imaging Report ---
EXAMINATION: CT angiogram of the head. 8 mL of Omnipaque 350 was administered intravenously. INDICATION: Aneurysm. FINDINGS: There is an aneurysm mass seen arising from the anterior inferior aspect of the anterior communicating artery, fully opacified, measuring 8 x 6 x 6 mm in size. When compared to 08/27/2016 this demonstrates no significant change. Both anterior cerebral arteries are patent. The middle cerebral arteries are also patent. The internal carotid arteries are patent. The vertebral arteries and the basilar arteries are patent. The posterior cerebral arteries are patent. The brain parenchyma demonstrate preserved rivera-white white matter differentiation. There is no hydrocephalus. No extra-axial fluid collection is seen. The calvarium, the paranasal sinuses and orbits appear grossly unremarkable. 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 Dictated by: Dictated on workstation # [id number]
[2016-12-04] MEDS ORDERED: OXYC-465 PO (16:49)
[2016-12-04 17:08] VITALS: BP 138/92
== END 2016-12-04 17:08 | disposition home or self-care (01) ==
LOC: EDUNIT# 12:44 → ER 12:46
DX: R51 Headache (principal); F41.9 Anxiety disorder, unspecified; F32.9 Major depressive disorder, single episode, unspecified; K21.9 Gastro-esophageal reflux disease without esophagitis; I25.10 Atherosclerotic heart disease of native coronary artery without angina pectoris; I25.2 Old myocardial infarction; E78.00 Pure hypercholesterolemia, unspecified; I10 Essential (primary) hypertension; J44.9 Chronic obstructive pulmonary disease, unspecified; Z90.710 Acquired absence of both cervix and uterus; Z98.890 Other specified postprocedural states; Z87.891 Personal history of nicotine dependence; Z85.118 Personal history of other malignant neoplasm of bronchus and lung
CPT/HCPCS: 36415; 70450; 70496; 71020; 80053; 81000; 85025; 96361; 96374; 96375; 96376

== ENCOUNTER → 2016-12-16 | Outpatient (CLI) | payer MEDICARE, MEDICAID ==
[2016-12-16 11:42] LABS: MEAN PLATELET VOLUME 10.7 FL (7.4-10.4); RED BLOOD COUNT 5.1 10^6/uL (4.35-5.85); RED CELL DISTRIBUTION WIDTH 14.4 % (10.0-14.5); WHITE BLOOD COUNT 9.3 10^3/uL (4.3-11.0)
[2016-12-16 12:07] LABS: ALANINE AMINOTRANSFERASE 9 U/L (0-55); ALBUMIN 4.5 GM/DL (3.2-4.5); ANION GAP 13 MMOL/L (5-14); ASPARTATE AMINO TRANSFERASE 15 U/L (5-34); BILIRUBIN,TOTAL 0.3 MG/DL (0.1-1.0); BLOOD UREA NITROGEN 8 MG/DL (7-18); BUN/CREATININE RATIO 11; CALCIUM 10.4 MG/DL (8.5-10.1); CARBON DIOXIDE 27 MMOL/L (21-32); CHLORIDE 103 MMOL/L (98-107); CREATININE SERUM 0.75 MG/DL (0.60-1.30); GFR ESTIMATED > 60; GLUCOSE 94 MG/DL (70-105); POTASSIUM 4.3 MMOL/L (3.6-5.0); SODIUM 143 MMOL/L (135-145); TOTAL PROTEIN 8.1 GM/DL (6.4-8.2)
== END ==
LOC: LAB 11:22
DX: R91.1 Solitary pulmonary nodule (principal); R84.9 Unspecified abnormal finding in specimens from respiratory organs and thorax; Z85.118 Personal history of other malignant neoplasm of bronchus and lung
CPT/HCPCS: 36415; 80053; 85027

== ENCOUNTER 2017-01-06 08:57 | Outpatient (RCR) | payer MEDICARE, MEDICAID | END 2017-02-08 | disposition home or self-care (01) | LOC: ONC 08:57 | PROVIDERS: ATTEND Internal Medicine Hematology & Oncology | DX: C34.11 Malignant neoplasm of upper lobe, right bronchus or lung (principal); J44.9 Chronic obstructive pulmonary disease, unspecified; K21.9 Gastro-esophageal reflux disease without esophagitis; M79.7 Fibromyalgia; F41.9 Anxiety disorder, unspecified; F32.9 Major depressive disorder, single episode, unspecified; I10 Essential (primary) hypertension; G89.29 Other chronic pain; E78.5 Hyperlipidemia, unspecified; F17.210 Nicotine dependence, cigarettes, uncomplicated; R51 Headache; I67.1 Cerebral aneurysm, nonruptured | CPT/HCPCS: 99213 ==

== ENCOUNTER 2017-04-07 10:05 | Outpatient (RCR) | payer MEDICARE, MEDICAID ==
[2017-04-07 10:24] LABS: BASOPHILS % (AUTO) 0 % (0-10); EOSINOPHILS # (AUTO) 0.2 10^3/uL (0.0-0.3); EOSINOPHILS % (AUTO) 2 % (0-10); HEMATOCRIT 47 % (35-52); HEMOGLOBIN 15.9 G/DL (11.5-16.0); LYMPHOCYTES # (AUTO) 1.8 X 10^3 (1.0-4.0); LYMPHOCYTES % (AUTO) 21 % (12-44); MEAN CORPUSCULAR HEMOGLOBIN 32 PG (25-34); MEAN CORPUSCULAR HGB CONC 34 G/DL (32-36); MEAN CORPUSCULAR VOLUME 95 FL (80-99); MEAN PLATELET VOLUME 10.8 FL (7.4-10.4); MONOCYTES # (AUTO) 0.5 X 10^3 (0.0-1.0); MONOCYTES % (AUTO) 6 % (0-12); NEUTROPHILS # (AUTO) 5.8 X 10^3 (1.8-7.8); NEUTROPHILS % (AUTO) 71 % (42-75); PLATELET COUNT 281 10^3/uL (130-400); RED BLOOD COUNT 4.92 10^6/uL (4.35-5.85); RED CELL DISTRIBUTION WIDTH 14.2 % (10.0-14.5); WHITE BLOOD COUNT 8.3 10^3/uL (4.3-11.0)
[2017-04-07 10:47] LABS: ALANINE AMINOTRANSFERASE 9 U/L (0-55); ALBUMIN 4.2 GM/DL (3.2-4.5); ALKALINE PHOSPHATASE 97 U/L (40-136); BILIRUBIN,TOTAL 0.3 MG/DL (0.1-1.0); BUN/CREATININE RATIO 13; CALCIUM 9.8 MG/DL (8.5-10.1); CARBON DIOXIDE 29 MMOL/L (21-32); CHLORIDE 103 MMOL/L (98-107); CREATININE SERUM 0.69 MG/DL (0.60-1.30); GFR ESTIMATED > 60; GLUCOSE 97 MG/DL (70-105); POTASSIUM 4.5 MMOL/L (3.6-5.0); SODIUM 141 MMOL/L (135-145); TOTAL PROTEIN 7.9 GM/DL (6.4-8.2)
== END 2017-07-06 | disposition home or self-care (01) ==
LOC: ONC 10:05
PROVIDERS: ATTEND Internal Medicine Hematology & Oncology
DX: C34.11 Malignant neoplasm of upper lobe, right bronchus or lung (principal); J44.9 Chronic obstructive pulmonary disease, unspecified; K21.9 Gastro-esophageal reflux disease without esophagitis; M79.7 Fibromyalgia; F41.9 Anxiety disorder, unspecified; F32.9 Major depressive disorder, single episode, unspecified; I10 Essential (primary) hypertension; G89.29 Other chronic pain; E78.5 Hyperlipidemia, unspecified; F17.210 Nicotine dependence, cigarettes, uncomplicated; R51 Headache; I67.1 Cerebral aneurysm, nonruptured; Z79.899 Other long term (current) drug therapy
CPT/HCPCS: 36415; 80053; 85025; 99213

== ENCOUNTER → 2017-04-15 | Outpatient (CLI) | payer MEDICARE, MEDICAID ==
[~2017-04-15] MED LIST changes: +IOHEXOL 350 MG/ML 100 ML (OMNIPAQUE 350) VIAL IV ONE; +NS 100 ML (IVPB) BAG IV ONE
--- NOTE | 2017-04-15 10:07 | Diagnostic Imaging Report ---
PROCEDURE: CT head with and without contrast. TECHNIQUE: Multiple contiguous axial images were obtained through the brain before and after the administration of intravenous contrast. INDICATION: History of intracranial aneurysm. Lung cancer. 75 mL of Omnipaque 350 is administered intravenously. FINDINGS: When compared to 12/04/2016, there is a stable 8 mm aneurysm arising from the anterior inferior aspect of the anterior communicating artery with peripheral calcification. The aneurysm is enhancing with contrast with no significant luminal thrombus seen. The unenhanced phase demonstrates no intracranial hemorrhage. The brain parenchyma demonstrates no enhancing mass. There is no hydrocephalus and no extra-axial fluid collection seen. From the calvarium, the paranasal sinuses and the orbits appear grossly unremarkable. IMPRESSION: Stable 8 mm aneurysm arising from the anterior inferior aspect of the anterior communicating artery. No enhancing mass. Dictated by: Dictated on workstation # [id number]
--- NOTE | 2017-04-15 13:52 | Diagnostic Imaging Report ---
PROCEDURE: CT chest with contrast only. TECHNIQUE: Multiple contiguous axial images were obtained through the chest after administration of intravenous contrast. INDICATION: Lung cancer, cough. COMPARISON: 10/21/2016. FINDINGS: There is unchanged pleural/parenchymal opacity involving the right greater than left pulmonary apex as a stable finding. Heterogeneous air trapping and features of centrilobular emphysema are unchanged. There is no hilar, mediastinal, or axillary lymphadenopathy. The visualized supraclavicular fossa and thoracic inlet are unremarkable. No bony destructive lesion. There is no pneumothorax. The visualized upper abdomen reveals some unchanged nodular thickening of the bilateral adrenal glands, identical to the prior exam. The partially visualized liver appears unremarkable. IMPRESSION: Biapical pleural/parenchymal opacities, greater right than left, are unchanged from the prior exam. The centrilobular emphysema is unchanged. The adrenal nodularity and thickening are unchanged. No thoracic lymphadenopathy or effusion. Dictated by: Dictated on workstation # [id number]
== END ==
LOC: RAD 08:10
PROVIDERS: ATTEND Internal Medicine Hematology & Oncology
DX: C34.11 Malignant neoplasm of upper lobe, right bronchus or lung (principal); J43.9 Emphysema, unspecified; R05 Cough; E27.8 Other specified disorders of adrenal gland; I67.1 Cerebral aneurysm, nonruptured
CPT/HCPCS: 70470; 71260

== ENCOUNTER 2017-09-01 09:04 | Outpatient (RCR) | payer MEDICARE, MEDICAID ==
[~2017-09-01 09:04] MED LIST changes: -IOHEXOL 350 MG/ML 100 ML (OMNIPAQUE 350) VIAL IV ONE; -IPRA3AMP IH; +IPRA3AMP31 IH; -NS 100 ML (IVPB) BAG IV ONE
[2017-09-01 09:19] LABS: BASOPHILS % (AUTO) 0 % (0-10); EOSINOPHILS # (AUTO) 0.1 10^3/uL (0.0-0.3); EOSINOPHILS % (AUTO) 2 % (0-10); HEMATOCRIT 46 % (35-52); HEMOGLOBIN 15.7 G/DL (11.5-16.0); LYMPHOCYTES # (AUTO) 1.8 X 10^3 (1.0-4.0); LYMPHOCYTES % (AUTO) 21 % (12-44); MEAN CORPUSCULAR HEMOGLOBIN 32 PG (25-34); MEAN CORPUSCULAR HGB CONC 34 G/DL (32-36); MEAN CORPUSCULAR VOLUME 94 FL (80-99); MEAN PLATELET VOLUME 10.4 FL (7.4-10.4); MONOCYTES # (AUTO) 0.6 X 10^3 (0.0-1.0); MONOCYTES % (AUTO) 7 % (0-12); NEUTROPHILS # (AUTO) 6.1 X 10^3 (1.8-7.8); NEUTROPHILS % (AUTO) 71 % (42-75); PLATELET COUNT 340 10^3/uL (130-400); RED BLOOD COUNT 4.89 10^6/uL (4.35-5.85); RED CELL DISTRIBUTION WIDTH 14.3 % (10.0-14.5); WHITE BLOOD COUNT 8.6 10^3/uL (4.3-11.0)
[2017-09-01 09:33] LABS: ALANINE AMINOTRANSFERASE 9 U/L (0-55); ALBUMIN 4.3 GM/DL (3.2-4.5); ALKALINE PHOSPHATASE 102 U/L (40-136); BILIRUBIN,TOTAL 0.2 MG/DL (0.1-1.0); BUN/CREATININE RATIO 11; CALCIUM 9.5 MG/DL (8.5-10.1); CARBON DIOXIDE 29 MMOL/L (21-32); CHLORIDE 104 MMOL/L (98-107); CREATININE SERUM 0.74 MG/DL (0.60-1.30); GFR ESTIMATED > 60; GLUCOSE 96 MG/DL (70-105); POTASSIUM 3.4 MMOL/L (3.6-5.0); SODIUM 142 MMOL/L (135-145); TOTAL PROTEIN 7.5 GM/DL (6.4-8.2)
== END 2017-11-30 | disposition home or self-care (01) ==
LOC: ONC 09:04
PROVIDERS: ATTEND Internal Medicine Hematology & Oncology
DX: C34.11 Malignant neoplasm of upper lobe, right bronchus or lung (principal); J44.9 Chronic obstructive pulmonary disease, unspecified; K21.9 Gastro-esophageal reflux disease without esophagitis; M79.7 Fibromyalgia; F41.9 Anxiety disorder, unspecified; F32.9 Major depressive disorder, single episode, unspecified; I10 Essential (primary) hypertension; G89.29 Other chronic pain; E78.5 Hyperlipidemia, unspecified; F17.210 Nicotine dependence, cigarettes, uncomplicated; R51 Headache; I67.1 Cerebral aneurysm, nonruptured; Z79.899 Other long term (current) drug therapy
CPT/HCPCS: 80053; 85025; 99213